=== PATIENT | male | born 1970 | race Caucasian/White ===

== ENCOUNTER 2020-07-12 11:32 | Outpatient (CLI) | payer BC | END 2020-07-12 11:33 | disposition home or self-care (01) | LOC: CSHMRI 11:32 | PROVIDERS: ATTEND Internal Medicine Infectious Disease | DX: M86.671 Other chronic osteomyelitis, right ankle and foot (principal); Z98.890 Other specified postprocedural states; Z18.89 Other specified retained foreign body fragments; M89.9 Disorder of bone, unspecified; S93.691D Other sprain of right foot, subsequent encounter ==

== ENCOUNTER 2020-10-16 08:15 | Outpatient (CLI) | payer BC | END 2020-10-16 08:16 | disposition home or self-care (01) | LOC: CSHULT 08:15 | PROVIDERS: ATTEND Nurse Practitioner Family | DX: I10 Essential (primary) hypertension (principal); Z68.31 Body mass index [BMI] 31.0-31.9, adult; R89.9 Unspecified abnormal finding in specimens from other organs, systems and tissues; R94.5 Abnormal results of liver function studies; R93.2 Abnormal findings on diagnostic imaging of liver and biliary tract | CPT/HCPCS: 93975 ==